=== PATIENT | female | born 1975 | race Caucasian/White ===

== ENCOUNTER 2018-12-01 22:23 | Emergency (ER) | payer BC ==
[~2018-12-01] VITALS: Ht 160 cm; Wt 54.9 kg
[2018-12-01 23:23] VITALS: BP 131/89
[2018-12-02] MEDS ORDERED: FLUORESCEIN SODIUM OPHTH 1 EA STRIP OP ONE
[2018-12-02] MEDS ORDERED: TETRACAINE HCL/PF 0.5% UD 2 ML BOTTLE LEFTEYE ONE
== END 2018-12-02 01:38 | disposition home or self-care (01) ==
LOC: ER 22:25
DX: H00.014 Hordeolum externum left upper eyelid (principal); Z91.040 Latex allergy status
CPT/HCPCS: 99283; A4606